=== PATIENT | male | born 1965 | race Caucasian/White ===

== ENCOUNTER 2020-08-15 17:48 | Emergency (ER) | payer BC, SELFPAY ==
--- NOTE | 2020-08-15 17:54 | ED.UPPEXIN ---
HPI - Extremity Injury (Upper) General Chief Complaint: Wound/Laceration Stated Complaint: injury to L arm Time Seen by Provider: 08/15/20 18:02 Source: patient and RN notes reviewed Mode of arrival: ambulatory Limitations: no limitations History of Present Illness HPI narrative: Patient states he got cut just prior to arrival on his left forearm after a fluorescent light broke. complaint: injury to: left and forearm Onset (ago): minute(s) (10) Other injuries: none Handedness: right Place: home Severity: mild Relieving factors: none Exacerbating factors: none Context: laceration Associated symptoms: denies other symptoms Treatments prior to arrival: bandage Related Data Home Medications Medication Instructions Recorded Confirmed atorvastatin 20 mg PO DAILY 08/15/20 08/15/20 Allergies Allergy/AdvReac Type Severity Reaction Status Date / Time Penicillins Allergy Anaphylaxis Verified 08/15/20 18:08 Review of Systems Review of Systems: All systems reviewed & are unremarkable except as noted in HPI and below PMFSH Past Medical History Medical History (Updated 08/15/20 @ 18:39 by Ankush Rowe MD) Hyperlipidemia Surgical History Surgical History (Updated 08/15/20 @ 18:33 by Ankush Rowe MD) No pertinent past surgical history Social History Social History (Updated 08/15/20 @ 18:33 by Ankush Rowe MD) Smoking packs per day: 1 Smoking cigarettes per day: 20.0 Smoking status: Current every day smoker Tobacco type: cigarettes Alcohol intake: never Substance use: never Exam Const: General: healthy appearing and no acute distress Nutritional Appearance: well nourished Orientation/consciousness: patient oriented x3 HENMT: Head: normal to inspection Ears: external ears normal Eyes: Conjunctivae: conjunctivae normal Pupils: Equal, round and reactive pupils present EOM: EOMs intact bilaterally Neck: Neck: normal visual inspection Resp: Effort & Inspection: normal respiratory effort Auscultation: clear to auscultation bilaterally Cardio: Rate: regular rate Rhythm: regular rhythm GI: GI Palp: Yes Soft to palpation Auscultation: normal bowel sounds Back/Spine/Pelvis: Cervical Spine: cervical ROM normal Thoracic/Lumbar Spine: thoraco-lumbar ROM normal Skin: Wounds: wounds noted laceration left forearm size (3.5 cm) Neuro: General: patient oriented x3, moves all extremities and no focal motor deficits Speech: normal speech Gait exam (Neuro): Normal gait present Extrem: General: normal to inspection and no clubbing, cyanosis or edema Psych: Appearance: grossly normal and well kempt Mental Status: mental status grossly normal Affect: normal affect Attitude: cooperative Thought content: Yes Normal thought content present Course Vital Signs Vital signs: Vital Signs Temperature 36.8 C 08/15/20 18:00 Pulse Rate 82 08/15/20 18:00 Respiratory Rate 16 08/15/20 18:00 Blood Pressure 142/78 H 08/15/20 18:00 Pulse Oximetry 97 08/15/20 18:00 Temperature 36.8 C 08/15/20 18:00 Pulse Rate 80 08/15/20 18:47 Respiratory Rate 15 08/15/20 18:47 Blood Pressure 142/78 H 08/15/20 18:00 Pulse Oximetry 100 08/15/20 18:47 Procedures Laceration Laceration 1: Date: 08/15/20 Time: 18:12 Site: upper extremity (forearm) Side (If applicable): left Description: flap Local Anesthetic: lidocaine 1% and with epi Pre-repair: wound explored and irrigated ====== Skin Level ====== Skin layer closed with: nylon Size (cm): 4-0 Number of sutures: 9 Technique: running ====== Subcutaneous Layer ====== Subcutaneous layer closed with: vicryl Size: 4-0 Number of sutures: 5 Technique: simple, interrupted ====== Muscle Layer ====== ====== Tendon Layer ====== Discharge Plan Discharge Clinical Impression: Laceration Patient Dispositi
[2020-08-15 18:00] VITALS: BP 142/78; PULSE 82; RESP 16; TEMP 36.8; O2SAT 97
[2020-08-15] MEDS: LIDO 1%/EPINEPHRINE 1:100,000 20 ML VIAL INFILTRATE (18:05)
[2020-08-15] MEDS: NEOMYCIN/POLYMYXIN/BACITRACIN OINTMENT PACKET 1 PACKET (18:31)
[2020-08-15] MEDS: TETANUS,DIPHTHERIA,AC PERTUSSIS ADULT 0.5 ML (ADACEL) (18:34)
[2020-08-15 18:47] VITALS: PULSE 80; RESP 15; O2SAT 100
== END 2020-08-15 18:48 | disposition home or self-care (01) ==
PROVIDERS: Emergency Provider Emergency Medicine; PCP Family Medicine
DX: S51.812A Laceration without foreign body of left forearm, initial encounter (principal); W25.XXXA Contact with sharp glass, initial encounter
CPT/HCPCS: 12002; 90471; 90715; 99282

== ENCOUNTER 2021-03-12 09:32 | Emergency (ER) | payer BC, SELFPAY ==
[2021-03-12 09:40] VITALS: BP 160/85; PULSE 80; RESP 17; TEMP 36.9; O2SAT 98
--- NOTE | 2021-03-12 09:47 | ED.ABDPAIN ---
HPI - Abdominal Pain General Chief Complaint: Abdominal Pain Stated Complaint: ABD PAIN Time Seen by Provider: 03/12/21 09:47 Source: patient Mode of arrival: ambulatory Limitations: no limitations History of Present Illness HPI narrative: 55-year-old man with a history of peripheral vascular disease status post stents, smoking, and hyperlipidemia comes in today complaining of an episode of abdominal pain that was severe approximately 1 week ago. He states that since then he has had a fullness in his right lower abdomen that feels like something is pulling in there . He has had no dysuria, nausea, vomiting, diarrhea, swelling in his groin or scrotum, dysuria, hematuria, or fever. He denies prior abdominal surgeries. MD elicited complaint: abdominal pain Onset (ago): week(s) (1) Pain Consistency: constant Location: RLQ Severity: mild Quality: fullness Radiation: none Migration to: no migration Exacerbating factors: nothing Relieving factors: nothing Associated symptoms: denies other symptoms Related Data Home Medications Medication Instructions Recorded Confirmed atorvastatin 20 mg PO DAILY 08/15/20 03/12/21 aspirin 81 mg PO DAILY 03/12/21 03/12/21 Allergies Allergy/AdvReac Type Severity Reaction Status Date / Time Penicillins Allergy Anaphylaxis Verified 08/15/20 18:08 Review of Systems Constitutional: Constitutional: Denies chills and Denies fever(s) ENT: Denies dysphagia, Denies nasal congestion and Denies sore throat Cardiovascular: Cardiovascular: Denies chest pain and Denies radiating jaw, neck or arm pain Respiratory: Respiratory: Denies cough and Denies dyspnea Gastrointestinal: Gastrointestinal: Reports as per HPI, Denies abdominal pain, Denies nausea and Denies vomiting Genitourinary: Genitourinary: Denies hematuria, Denies dysuria and Denies urinary frequency Musculoskeletal: Musculoskeletal: Denies back pain, Denies arthralgias and Denies joint swelling Integumentary/Breasts: Skin/Breast: Denies pruritus, Denies erythema and Denies rash Neurologic: Denies vertigo, Denies dizziness and Denies syncope Hematologic/Lymphatic: Hematologic/Lymphatic: Denies easy bleeding and Denies easy bruising Allergic/Immunologic: Allergic/Immunologic: Denies lip swelling and Denies throat swelling PMFSH Past Medical History Medical History (Updated 03/12/21 @ 11:04 by Moose Hirsch MD) Hyperlipidemia Peripheral vascular disease Surgical History Surgical History (Updated 03/12/21 @ 09:59 by Moose Hirsch MD) No pertinent past surgical history S/P arterial stent Social History Social History Smoking packs per day: 1 Smoking cigarettes per day: 20.0 Smoking status: Current every day smoker Tobacco type: cigarettes Alcohol intake: never Substance use: never Exam Const: General: healthy appearing, no acute distress and alert Orientation/consciousness: patient oriented x3 Limitations: no limitations HENMT: Head: normal to inspection General nose exam: Normal nares present Face and sinus: normal facial exam Mouth: Yes moist mucous membranes Throat: posterior oropharynx normal Eyes: Conjunctivae: conjunctivae normal Pupils: Equal, round and reactive pupils present EOM: EOMs intact bilaterally Resp: Effort & Inspection: normal respiratory effort and not labored Auscultation: clear to auscultation bilaterally, no rales, no rhonchi and no wheezes Cardio: Rate: regular rate Rhythm: regular rhythm Heart sounds: no murmurs GI: GI Palp: Yes Soft to palpation, No Tenderness to palpation present (GI), No Guarding due to palpation present (GI), No Rigid due to palpation, No Hernia present and No Palpable mass present : Male General Exam: Yes normal external exam Scrotum: scrotum normal Skin: General skin exam: normal color, no jaundice and no pallor Rashes: no rashes Neuro: General: patient oriented x3, moves
[2021-03-12 10:14] LABS: Basophils Absolute Auto 0.07 K/mm3 (0.00-0.10); Basophils Percent Auto 0.7 % (0.0-1.0); Eosinophils Absolute Auto 0.16 K/mm3 (0.02-0.50); Eosinophils Percent Auto 1.6 % (1.0-6.0); Hematocrit 48.5 % (40.0-54.0); Hemoglobin 16.6 g/dL (14.0-18.0); Immature Granulocyte Absolute 0.03 K/mm3 (0.00-0.00); Immature Granulocyte Percent A 0.3 % (0.0-0.0); Lymphocytes Absolute Auto 2.01 K/mm3 (1.10-4.50); Mean Corpuscular HGB Conc 34.2 g/dL (32.0-36.0); Mean Corpuscular Hemoglobin 31.9 pg (27.0-31.0); Mean Corpuscular Volume 93.1 fL (78.0-102.0); Mean Platelet Volume 9.4 fl (8.7-11.0); Monocytes Absolute Auto 0.85 K/mm3 (0.10-0.90); Monocytes Percent Auto 8.4 % (2.0-11.0); Platelet Count Result 194 K/mm3 (150-420); Red Blood Count 5.21 M/mm3 (4.70-6.10); Red Cell Distribution Width 13.2 % (11.6-14.4); White Blood Count 10.1 K/mm3 (4.8-10.8)
[2021-03-12 10:26] LABS: Alanine Aminotransferase 25 U/L (16-63); Alkaline Phosphatase 89 U/L (46-116); Anion Gap 4 mmol/L (8-16); Aspartate Amino Transferase 12 U/L (15-37); Bilirubin,Total 0.9 mg/dL (0.00-1.00); Blood Urea Nitrogen 8 mg/dL (7-18); Calcium 8.8 mg/dL (8.5-10.1); Carbon Dioxide 32 mmol/L (21-32); Chloride 101 mmol/L (98-108); Estimated Glomerular Filt Rate > 60; Glucose 102 mg/dL (70-99); Osmolality Calculated 282 mOsm/kg (285-295); Sodium 137 mmol/L (136-145); Total Protein 7.8 g/dL (6.4-8.2)
[2021-03-12 10:52] LABS: Add Urine Microscopic? YES; Appearance Urine Clear (Clear); Bilirubin Urine Negative (Negative); Blood Urine Negative (Negative); Color Urine Yellow (Yellow); Glucose Urine UA 1+ (Negative); Ketones Urine Negative (Negative); Leukocyte Esterase Ur Negative LEU/UL (Negative); Nitrate Urine Negative (Negative); Protein Urine Negative (Negative); pH Urine 6.5 (5.0-8.0)
[2021-03-12 10:56] LABS: RBC Urine 0-2 /hpf (0-2); Squamous Epithelial Cell Urine None seen /hpf (Few); WBC Urine 0-3 /hpf (0-3)
[2021-03-12 10:57] LABS: Bacteria Urine None seen /hpf; Mucus Urine Few /lpf
[2021-03-12 11:12] VITALS: RESP 17
== END 2021-03-12 11:13 | disposition home or self-care (01) ==
PROVIDERS: Emergency Provider Emergency Medicine; PCP Family Medicine
DX: R10.31 Right lower quadrant pain (principal)
CPT/HCPCS: 36415; 80053; 81001; 85025; 99282; 99283

== ENCOUNTER 2021-10-30 13:05 | Outpatient (CLI) | payer BC, SELFPAY ==
--- NOTE | ~2021-10-30 | XR_ITS ---
EXAMINATION: [id number]_[id number] EXAM DATE: 10/30/2021 13:37 INDICATION: Neck pain. Right side. TECHNIQUE: Cervical spine frontal, lateral, lateral swimmers, and open-mouth odontoid projections. C omparison is made to prior examination from 11/19/2013. FINDINGS: There is moderate disc disease from C4 through C7. The vertebral bodies are aligned in the AP dimension. The odontoid process is intact. The lateral masses of C1 line up with C2. Prevertebral soft tissue and pre-dens space are within normal limits. At least moderate uncovertebral joint arthr opathy C4-C7 as well causing neural foraminal stenosis. Mild to moderate amount of bilateral carotid bulb arteriosclerosis with unknown amount of stenosis; consider follow-up carotid ultrasound. Lung ap ices are clear. IMPRESSION: 1. Moderate lower cervical spondylosis. 2. Carotid arteriosclerosis. Consider ultrasound. Reviewed, dictated and finalized at location A. UMER RELATIONS SPECIALIST
== END 2021-10-30 13:06 | disposition home or self-care (01) ==
LOC: CHSIMG 13:08
PROVIDERS: PCP Family Medicine; Visit Provider Physician Assistant
DX: M54.2 Cervicalgia (principal)
CPT/HCPCS: 72040

== ENCOUNTER 2025-02-06 09:44 | Outpatient (CLI) | payer BC, SELFPAY ==
--- NOTE | ~2025-02-06 | CT_ITS ---
CT Scan of the Chest without Contrast: Clinical Indication: Lung cancer screening, nicotine dependence Technique: Contiguous sections were acquired throughout the chest without intravenous contrast. Dose reduction technique was used on this scan by utilizing automated exposure control and iterative recon struction technique. The dose-length product (DLP) was 86.61 mGy-cm. Findings: There is no evidence of any significant mediastinal, hilar or axillary lymphadenopathy. Extensive cor onary artery calcifications present. There is no evidence of pleural or pericardial effusion. 4 mm right middle lobe pulmonary nodule present (axial image 74). Images through the upper abdomen reveal no abnormalities. Impression: Lung RADS 2: Benign appearance. 12 month follow-up screening CT advised. Reviewed, dictated and finalized at location . Impression: Lung RADS 2: Benign appearance. 12 month follow-up screening CT advised.
== END 2025-02-06 09:45 | disposition home or self-care (01) ==
LOC: CHSIMG 09:45
PROVIDERS: PCP Family Medicine; Visit Provider Family Medicine
DX: Z12.2 Encounter for screening for malignant neoplasm of respiratory organs (principal); Z87.891 Personal history of nicotine dependence
CPT/HCPCS: 71271

== ENCOUNTER 2025-03-03 06:00 | Emergency (ER) | payer BC, SELFPAY ==
[2025-03-03] VITALS (10 sets, daily range): BP systolic 150–183; BP diastolic 70–78; PULSE 60–92; RESP 12–26; TEMP 36.1–36.7; O2SAT 94–100
--- NOTE | ~2025-03-03 | XR_ITS ---
Portable chest x-ray Comparison: 05/27/2015 Clinical History: Chest pain Findings: Lungs are clear, without focal consolidation or pleural effusion. Cardiomediastinal silho uette is stable. Bones and soft tissues are unremarkable. Impression: Normal chest. Reviewed, dictated and finalized at [facility]. Impression: Normal chest.
--- NOTE | 2025-03-03 06:02 | ECG_ITS ---
Test Date: 2025-03-03 06:08:20 Measurements Intervals [place] Rate: 69 P: 51 WY: 190 QRS: 71 QRSD: 100 T: 62 QT: 400 QTc: 430 Interpretive Statements SINUS RHYTHM WITH MARKED SINUS ARRHYTHMIA VOLTAGE CRITERIA FOR LVH BASELINE ARTIFACT- I, III BORDERLINE ECG No previous ECG available for comparison Electronically Signed On 03-03-2025 06:37:55 CDT by Jerry Hurtado D.O.
--- NOTE | 2025-03-03 06:03 | ED_ITS ---
HPI - General Adult General Chief complaint: Chest Pain <Amilcar Christianson DO - Last Filed: 03/03/25 06:25> Stated complaint: Left lateral side pain <Amilcar Christianson DO - Last Filed: 03/03/25 06:25> Time Seen by Provider: 03/03/25 06:02 <Amilcar Christianson DO - Last Filed: 03/03/25 06:25> History of Present Illness HPI narrative: Arie is a 59M with a PMH of HLD, PAD, tobacco abuse, COPD and CAD s/p stents that presented to the ED with a few days of left sided chest pain that is worse with taking a deep breath and coughing. He denies any dyspnea, sputum production or coughing more than usual. No lightheadedness, nausea or vomiting. He did not come in earlier as he was out of town. <Amilcar Christianson DO - Last Filed: 03/03/25 06:25> Related Data Home medications: Home Medications ?Medication ?Instructions ?Recorded ?Confirmed ?Last Taken ?Type atorvastatin 20 mg tablet 20 mg PO DAILY 08/15/20 03/12/21 Unknown History aspirin 81 mg tablet 81 mg PO DAILY 03/12/21 03/12/21 Unknown History <Amilcar Christianson DO - Last Filed: 03/03/25 06:25> Allergies/adverse reactions: Allergies Allergy/AdvReac Type Severity Reaction Status Date / Time Penicillins Allergy Anaphylaxis Verified 03/03/25 06:24 <Amilcar Christianson DO - Last Filed: 03/03/25 06:25> Review of Systems 2 Review of Systems: All systems reviewed & are unremarkable except as noted in HPI and below <DO Vanna Reeves Last Filed: 03/03/25 06:25> [facility] Past Medical History Medical History: Medical History Peripheral vascular disease Hyperlipidemia <Amilcar Christianson DO - Last Filed: 03/03/25 06:25> Surgical History Surgical History: Surgical History S/P arterial stent No pertinent past surgical history <Amilcar Christianson DO - Last Filed: 03/03/25 06:25> Social History Social History: Social History Smoking packs per day: 1 Smoking cigarettes per day: 20.0 Smoking status: Current every day smoker Tobacco type: cigarettes Alcohol intake: never Substance use: never <Amilcar Christianson DO - Last Filed: 03/03/25 06:25> Exam 2 Const: General: cooperative, healthy appearing, comfortable, no acute distress, well developed, alert, awake and Physically active <Amilcar Christianson DO - Last Filed: 03/03/25 06:25> Orientation/consciousness: oriented to person, oriented to place and oriented to time <Amilcar Christianson DO - Last Filed: 03/03/25 06:25> HENMT: Head: normal to inspection, normocephalic and atraumatic <Amilcar Christianson DO - Last Filed: 03/03/25 06:25> Ears: hearing grossly normal bilaterally and external ears normal <Amilcar Christianson DO - Last Filed: 03/03/25 06:25> Face/Nose/Sinus: Normal external nose present <Amilcar Christianson DO - Last Filed: 03/03/25 06:25> Eyes: General: appearance normal, both eyes and all related structures < Amilcar Christianson DO - Last Filed: 03/03/25 06:25> Periorbital: periorbital findings normal <Amilcar Christianson DO - Last Filed: 03/03/25 06:25> Sclera: sclerae normal <Amilcar Christianson DO - Last Filed: 03/03/25 06:25> Pupils: Equal, round and reactive pupils present <Amilcar Christianson DO - Last Filed: 03/03/25 06:25> Neck: Neck: normal visual inspection <Amilcar Christianson DO - Last Filed: 03/03/25 06:25> Chest: Chest palpation & inspection: normal inspection of the chest <Amilcar Christianson DO - Last Filed: 03/03/25 06:25> Resp: Effort & Inspection: normal respiratory effort, able to speak in complete sentences and no respiratory distress <Amilcar Christianson DO - Last Filed: 03/03/25 06:25> Other: diffuse wheezing with a prolonged expiratory phase <Amilcar Christianson DO - Last Filed: 03/03/25 06:25> Cardio: Jugular venous distension: no JVD <Amilcar Christianson DO - Last Filed: 03/03/25 06:25> Rate: regular rate <Amilcar Christianson DO - Last Filed: 03/03/25 06:25> Rhythm: regular rhythm <Amilcar Christianson DO - Last Filed: 03/03/25 06:25> GI: Inspection: normal to inspection <Amilcar Christianson DO - Last Filed: 03/03/25 06:25> GI Palp: Yes Soft to palpation <Amilcar Christianson DO - Last Filed: 03/03/25 06:25> Auscultation: normal bowel sounds <Amilcar Christianson DO - Last Filed: 03/03/25 06:25> Skin: General skin exam: normal color and no rashes or lesions noted <Amilcar Christianson DO - Last Filed: 03/03/25 06:25> Neuro: General: oriented to person, oriented to place and oriented to time <Amilcar Christianson DO - Last Filed: 03/03/25 06:25> Cranial nerves: Yes Equal, round and reactive pupils present <Amilcar Christianson DO - Last Filed: 03/03/25 06:25> Extrem: General: normal to inspection <Amilcar Christianson DO - Last Filed: 03/03/25 06:25> Course Course Emergency Course: Ordered labs, EKG, and CXR as well as duoneb. EKG shows NSR with a rate of 69, normal axis, possible LVH but no ST elevation/depression <Amilcar Christianson DO - Last Filed: 03/03/25 06:25> Vital Signs Vital signs: Vital Signs Temperature 97.0 F L 03/03/25 06:02 Pulse Rate 88 03/03/25 06:02 Respiratory Rate 18 03/03/25 06:02 Blood Pressure 183/75 H 03/03/25 06:02 Pulse Oximetry 100 03/03/25 06:02 Oxygen Delivery Room Air 03/03/25 06:02 Temperature 97.0 F L 03/03/25 06:02 Pulse Rate 64 03/03/25 06:42 Respiratory Rate 12 03/03/25 06:42 Blood Pressure 183/75 H 03/03/25 06:02 Pulse Oximetry 100 03/03/25 06:42 Oxygen Delivery Room Air 03/03/25 06:19 <Amilcar Christianson, DO - Last Filed: 03/03/25 06:25> Vital Signs Temperature 97.0 F L 03/03/25 06:02 Pulse Rate 88 03/03/25 06:02 Respiratory Rate 18 03/03/25 06:02 Blood Pressure 183/75 H 03/03/25 06:02 Pulse Oximetry 100 03/03/25 06:02 Oxygen Delivery Room Air 03/03/25 06:02 Temperature 97.0 F L 03/03/25 06:02 Pulse Rate 64 03/03/25 06:42 Respiratory Rate 12 03/03/25 06:42 Blood Pressure 183/75 H 03/03/25 06:02 Pulse Oximetry 100 03/03/25 06:42 Oxygen Delivery Room Air 03/03/25 06:19 <Adam Hope III, DO - Last Filed: 03/03/25 07:13> Medical Decision Making MDM Narrative Medical decision making narrative: assumed care from Dr Soto at 0700 awaiting cxr. cxr nad, trop and labs unremarkable. Pt had pain for 3 days but risk factors for CAD. work up with ekg and labs and cxr reassuring. home on nsaids <Adam Alvaro Hope III, DO - Last Filed: 03/03/25 07:13> Vital Signs Vital Signs: Vital Signs Temperature 97.0 F L 03/03/25 06:02 Pulse Rate 88 03/03/25 06:02 Respiratory Rate 18 03/03/25 06:02 Blood Pressure 183/75 H 03/03/25 06:02 Pulse Oximetry 100 03/03/25 06:02 Oxygen Delivery Room Air 03/03/25 06:02 Temperature 97.0 F L 03/03/25 06:02 Pulse Rate 64 03/03/25 06:42 Respiratory Rate 12 03/03/25 06:42 Blood Pressure 183/75 H 03/03/25 06:02 Pulse Oximetry 100 03/03/25 06:42 Oxygen Delivery Room Air 03/03/25 06:19 <Amilcar Christianson, DO - Last Filed: 03/03/25 06:25> Vital Signs Temperature 97.0 F L 03/03/25 06:02 Pulse Rate 88 03/03/25 06:02 Respiratory Rate 18 03/03/25 06:02 Blood Pressure 183/75 H 03/03/25 06:02 Pulse Oximetry 100 03/03/25 06:02 Oxygen Delivery Room Air 03/03/25 06:02 Temperature 97.0 F L 03/03/25 06:02 Pulse Rate 64 03/03/25 06:42 Respiratory Rate 12 03/03/25 06:42 Blood Pressure 183/75 H 03/03/25 06:02 Pulse Oximetry 100 03/03/25 06:42 Oxygen Delivery Room Air 03/03/25 06:19 <Aadm John Hope III, DO - Last Filed: 03/03/25 07:13> Lab Data Result diagrams: 03/03/25 06:17 03/03/25 06:17 <Amilcar Christianson, DO - Last Filed: 03/03/25 06:25> Labs: Lab Results 03/03/25 Range/Units 06:17 WBC 6.7 (4.8-10.8) K/mm3 RBC 4.99 (4.70-6.10) M/mm3 Hgb 15.9 (14.0-18.0) g/dL Hct 46.2 (40.0-54.0) % MCV 92.6 (78.0-102.0) fL MCH 31.9 H (27.0-31.0) pg MCHC 34.4 (32-36) g/dL RDW 13.2 (11.6-14.4) % Plt Count 183 (150-420) K/mm3 MPV 9.4 (8.7-11.0) fl Immature Gran % (Auto) 0.3 H (0.0-0.0) % Neut % (Auto) 65.8 (50.0-70.0) % Lymph % (Auto) 22.7 (18.0-42.0) % Winkler % (Auto) 7.0 (2.0-11.0) % Eos % (Auto) 3.3 (1.0-6.0) % Baso % (Auto) 0.9 (0.0-1.0) % Lymph # (Auto) 1.52 (1.10-4.50) K/mm3 Winkler # (Auto) 0.47 (0.10-0.90) K/mm3 Eos # (Auto) 0.22 (0.02-0.50) K/mm3 Baso # (Auto) 0.06 (0.00-0.10) K/mm3 Abs Immat Gran (auto) 0.02 H (0.00-0.00) K/mm3 Absolute Neuts (auto) 4.40 (1.70-7.20) K/mm3 Absolute Nucleated RBC 0.00 (0.00-0.00) K/mm3 Nucleated RBC % 0.0 (0-0.0) % PT 10.7 (9.50-12.1) Seconds INR 1.0 Sodium 140 (136-145) mmol/L Potassium 3.4 L (3.5-5.1) mmol/L Chloride 100 (98-108) mmol/L Carbon Dioxide 29 (21-32) mmol/L Anion Gap 11 (4-12) mmol/L BUN 9 (7-18) mg/dL Creatinine 1.14 (0.70-1.30) mg/dL Estim Creat Clear Calc 62 ml/min Estimated GFR > 60 (59 - ) Glucose 238 H (70-99) mg/dL Calculated Osmolality 296 H (285-295) mOsm/kg Calcium 8.9 (8.5-10.1) mg/dL Magnesium 1.9 (1.8-2.4) mg/dL Total Bilirubin 0.6 (0.00-1.00) mg/dL AST 23 (15-37) U/L ALT 37 (16-63) U/L Alkaline Phosphatase 87 (46-116) U/L Troponin I 4.8 (0.00-60.4) ng/L NT-Pro-B Natriuret Pep 27 (0-125) pg/mL Total Protein 7.3 (6.4-8.2) g/dL Albumin 3.8 (3.4-5.0) g/dL <Amilcar Christianson, - Last Filed: 03/03/25 06:25> Lab Results 03/03/25 Range/Units 06:17 WBC 6.7 (4.8-10.8) K/mm3 RBC 4.99 (4.70-6.10) M/mm3 Hgb 15.9 (14.0-18.0) g/dL Hct 46.2 (40.0-54.0) % MCV 92.6 (78.0-102.0) fL MCH 31.9 H (27.0-31.0) pg MCHC 34.4 (32-36) g/dL RDW 13.2 (11.6-14.4) % Plt Count 183 (150-420) K/mm3 MPV 9.4 (8.7-11.0) fl Immature Gran % (Auto) 0.3 H (0.0-0.0) % Neut % (Auto) 65.8 (50.0-70.0) % Lymph % (Auto) 22.7 (18.0-42.0) % Winkler % (Auto) 7.0 (2.0-11.0) % Eos % (Auto) 3.3 (1.0-6.0) % Baso % (Auto) 0.9 (0.0-1.0) % Lymph # (Auto) 1.52 (1.10-4.50) K/mm3 Winkler # (Auto) 0.47 (0.10-0.90) K/mm3 Eos # (Auto) 0.22 (0.02-0.50) K/mm3 Baso # (Auto) 0.06 (0.00-0.10) K/mm3 Abs Immat Gran (auto) 0.02 H (0.00-0.00) K/mm3 Absolute Neuts (auto) 4.40 (1.70-7.20) K/mm3 Absolute Nucleated RBC 0.00 (0.00-0.00) K/mm3 Nucleated RBC % 0.0 (0-0.0) % PT 10.7 (9.50-12.1) Seconds INR 1.0 Sodium 140 (136-145) mmol/L Potassium 3.4 L (3.5-5.1) mmol/L Chloride 100 (98-108) mmol/L Carbon Dioxide 29 (21-32) mmol/L Anion Gap 11 (4-12) mmol/L BUN 9 (7-18) mg/dL Creatinine 1.14 (0.70-1.30) mg/dL Estim Creat Clear Calc 62 ml/min Estimated GFR > 60 (59 - ) Glucose 238 H (70-99) mg/dL Calculated Osmolality 296 H (285-295) mOsm/kg Calcium 8.9 (8.5-10.1) mg/dL Magnesium 1.9 (1.8-2.4) mg/dL Total Bilirubin 0.6 (0.00-1.00) mg/dL AST 23 (15-37) U/L ALT 37 (16-63) U/L Alkaline Phosphatase 87 (46-116) U/L Troponin I 4.8 (0.00-60.4) ng/L NT-Pro-B Natriuret Pep 27 (0-125) pg/mL Total Protein 7.3 (6.4-8.2) g/dL Albumin 3.8 (3.4-5.0) g/dL <Adam Hope III, DO - Last Filed: 03/03/25 07:13> Discharge Plan Discharge Clinical Impression: Atypical chest pain, Chest wall muscle strain <Amilcar Christianson DO - Last Filed: 03/03/25 06:25> Patient Disposition: Home <Amilcar Christianson DO - Last Filed: 03/03/25 06:25> Condition: Stable <Amilcar Christianson DO - Last Filed: 03/03/25 06:25> Instructions: Antibiotic Form, Chest Wall Pain (ED) <Amilcar Christianson DO - Last Filed: 03/03/25 06:25> Patient Language: German <Amilcar Christianson DO - Last Filed: 03/03/25 06:25> Prescriptions: New naproxen [Naprosyn] 500 mg tablet 500 mg PO BID Qty: 20 0RF No Action aspirin 81 mg Tablet 81 mg PO DAILY atorvastatin 20 mg tablet 20 mg PO DAILY <Amilcar Christianson, DO - Last Filed: 03/03/25 06:25> Follow-up/Referrals: Ana,MD Lv [Primary Care Provider] - <Amilcar Christianson, DO - Last Filed: 03/03/25 06:25> Quality HEART score for chest pain patients History: slightly suspicious <Adam Alvaro Hope III, DO - Last Filed: 03/03/25 07:13> ECG: normal <Adam Alvaro Hope III, DO - Last Filed: 03/03/25 07:13> Age: > 45 and < 65 years <Adam Alvaro Hope III, DO - Last Filed: 03/03/25 07:13> Risk factors: > or = to 3 risk factors of atherosclerotic disease <Adam Alvaro Hope III, DO - Last Filed: 03/03/25 07:13> Troponin: < or = to 1x normal limit <Adam Alvaro Hope III, DO - Last Filed: 03/03/25 07:13> Heart score: 3 <Adam Alvaro Hope III, DO - Last Filed: 03/03/25 07:13>
--- OUTSIDE RECORDS SUMMARY | 2025-03-03 06:03 | XMS_ITS | Encounter Summary ---
Author Organization [facility] Address [facility] [place] [address] Care Team Providers Care Map Mounter Name Role Phone Lv Perez MD Primary Care Provider Brent Holliday MD Unavailable Brent Holliday MD Unavailable Encounter Details Date Type Department Care Team (Late st Contact Info) Description 03/08/2016 Abstract [facility] [address] [place] [phone] Brent Holliday MD [phone] 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
--- OUTSIDE RECORDS SUMMARY | 2025-03-03 06:03 | XMS_ITS | Clinical Summary ---
Author Organization [facility] Address [facility] [place] [address] Care Team Providers Care Insurance Verifier Name Role Phone vL Perez MD Primary Care Provider Brent Holliday MD Unavailable Allergies Active Allergy Reactions Criticality Noted Date Comments Penicillins Hives High 07/05/2016 Medications aspirin 81 MG chewable tablet Chew 1 tablet by mouth daily. 01/05/20 16 Active atorvastatin 20 MG tabletIndications:Pure hypercholesterolemia Take 1 tablet (20 mg total) by mouth daily. 90 tablet 3 07/04/20 16 Active hydroCHLOROthiazide (MICROZIDE) 12.5 MG capsule take 1 capsule by mouth every day in the morning 90 capsule 2 09/02/20 24 Active metoprolol tartrate (LOPRESSOR) 25 MG tablet Take 0.5 tablets (12.5 mg total) by mouth 2 (two) times daily. 90 tablet 3 12/10/19 25 Active Active Problems Problem Noted Date Diagnosed Date S/P insertion of iliac artery stent 05/12/2021 Smoker 04/01/2021 Hyperlipidemia, unspecified hyperlipidemia type 04/01/2021 Primary hypertension 06/30/2016 Atherosclerosis of [place] ar josé miguel of left lower extremity with intermittent claudication 06/30/2016 Obstructive chronic bronchit is without exacerbation ([facility]) 06/30/2016 Personal history of tobacco use, presenting hazards to health 06/30/2016 PAD (peripheral artery disease) 06/30/2016 Encounters Date Type Department Care Team Description 12/10/2024 9:15 AM HOME THERAPY CLINICIAN Office Visit [facility] [place] [phone] Brent Holliday MD Follow Up 12/10/2024 Telephone [facility] [address] [place] [address] Brent Holliday MD Follow Up Call (Confirm pharmacy and get copies of DL and insurance.) 12/10/2024 Travel 12/09/2024 Telephone [facility] [address] [place] [address] Brent Holliday MD Appointment Reminder 12/06/2024 7:43 AM HOME THERAPY CLINICIAN - 12/06/2024 11:59 PM HOME THERAPY CLINICIAN Hospital Encounter [facility] [address] [place] [address] Brent Holliday MD Discharge Disposition: Home or Self Care (Routine Discharge) 12/06/2024 Travel from Last 3 Months Family History Medical History Relation Comments CABG Father Coronary artery disease Father Heart Attack Father Relation Status Comments Brother 1 Alive Brother 2 Alive Brother 3 Alive Father Alive Maternal Grandfather Maternal Grandmother Mother (Age 61) Paternal Grandfather Paternal Grandmother Sister Alive Social History Tobacco Use Types Packs/Day Years Used Date Smoking Tobacco: Smoker, Current Status Unknown Cigarettes 1 20 Smokeless Tobacco: Never Tobacco Cessation:Ready to Q uit: Not Asked; Counseling Given: Not Answered Alcohol Use Standard Drinks/Week Comments No 0 (1 standard drink = 0.6 oz pur e alcohol) rarely Sex and Gender Information Value Date Recorded Sex Assigned at Male 12/06/2024 7:41 AM HOME THERAPY CLINICIAN Legal Sex Male 7:24 PM CDT Gender Identity Not on file Sexual Orientation Not on file 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 Not on file Not on file Not on file Not on file Not on file Not on file Last Filed Vital Signs Vital Sign Reading Time Taken Comments Blood Pressure 152/80 12/10/2024 9:21 AM HOME THERAPY CLINICIAN Manual recheck Pulse 78 12/10/2024 9:20 AM HOME THERAPY CLINICIAN Temperature 36 C (96.8 F) 07/05/2016 4:24 PM CDT Respiratory Rate 16 12/10/2024 9:20 AM HOME THERAPY CLINICIAN Oxygen Saturation 98% 12/10/2024 9:2 0 AM HOME THERAPY CLINICIAN Inhaled Oxygen Concentration - - Weight 80.8 kg (178 lb 3.2 oz) 12/10/2024 9:20 AM HOME THERAPY CLINICIAN Height 172.7 cm (5' 8 ) 12/10/2024 9:20 AM HOME THERAPY CLINICIAN Body Mass Index 27.1 12/10/2024 9:20 AM HOME THERAPY CLINICIAN Plan of Treatment Health Maintenance Due Date Last Done Comments ASCVD Statin 1967 Colorectal Cancer Screening Colonoscopy (10 Years) 1967 Annual Physical 1970 Pneumococcal Vaccine: Pediatrics (0 to 5 Years) and At-Risk Patients (6 to 49 Years) (1 of 2 - PCV) 1973 Hepatitis C 1985 Hepatitis B Vaccines (1 of 3 - 19+ 3-dose series) 1986 ASCVD LDL 02/09/2017 02/10/2016 Lung Cancer Screening 2017 Zoster Vaccines (1 of 2) 2017 COVID-19 Vaccine (3 - 2023-2 5 season) 2024 07/24/2021, 07/02/2021 DTaP, Tdap and Td Vaccines ( 2 - Td or Tdap) 08/15/2030 08/15/2020 Meningococcal B Vaccine Aged Out No l onger eligible based on patient's age to complete this topic Meningococcal Vaccine Aged Out No felipe laverne eligible based on patient's age to complete this topic RSV Immunizations Under 20 Months Aged Out No longer eligible b ased on patient's age to complete this topic Procedures Procedure Name Priority Date/Time Associated Diagnosis Comments [facility] Routine 12/06/2024 8:20 AM HOME THERAPY CLINICIAN PAD (peripheral artery disease) LIPID PANEL Routine 02/10/2016 1:05 PM CDT from Last 3 Months or Most Recently Relevant to Health Maintenance Results * [facility] (12/06/2024 8:20 AM HOME THERAPY CLINICIAN) Anatomical Region Laterality Modality Extremity Ultrasound 12/06/2024 8:02 AM HOME THERAPY CLINICIAN Narrative 12/06/2024 5:26 PM HOME THERAPY CLINICIAN Outreach Arterial Doppler KYLE Vascular Report Pat.Name: Arie Moran Pat.ID: [id number] [facility] Refer.MD: Mitra, [facility] Exam Time: 8:02:00 AM Study Type:OUTREACH ART DOPPLER - KYLE Height: 68 in Age: 7 1965,59Y Sex: M Sonogrphr: augie Bowman rvt Pat. Stat.:Outpatient Reason for Study:PAD (peripheral artery disease) Procedures: Study performed at [place], [place] and interpreted by [facility]. ++++++++++++++++++++++++++++++++++++ SUMMARY: ++++++++++++++++++++++++++++++++++++ KYLE Rt: The resting KYLE is 0.95. KYLE Rt: This suggests borderline peripheral arterial disease. KYLE Rt: Pulse volume tracings suggest mild peripheral arterial occlusive disease. KYLE Rt: The toe pressure is 117 mmHg. KYLE Rt: The TBI is 0.76. KYLE Rt: TBI is within normal range. KYLE Lt: The resting KYLE is 0.93. KYLE Lt: This suggests borderline peripheral arterial disease. KYLE Lt: Pulse volume tracings suggest mild peripheral arterial occlusive disease. KYLE Lt: The toe pressure is 92 mmHg. KYLE Lt: The TBI is 0.60. KYLE Lt: TBI is within abnormal range. ++++++++++++++++++++++++++++++++++++ FINDINGS: ++++++++++++++++++++++++++++++++++++ KYLE Rt: The resting KYLE is 0.95. This suggests borderline peripheral arterial disease. Pulse volume tracings suggest mild peripheral arterial occlusive disease. The toe pressure is 117 mmHg. The TBI is 0.76. TBI is within normal range. KYLE Lt: The resting KYLE is 0.93. This suggests borderline peripheral arterial disease. Pulse volume tracings suggest mild peripheral arterial occlusive disease. The toe pressure is 92 mmHg. The TBI is 0.60. TBI is within abnormal range. ++++++++++++++++++++++++++++++++++++ MEASUREMENTS: ++++++++++++++++++++++++++++++++++++ PRESSURES Right Brachial Brach P 154 mmHg Right Ankle DP AnkleDP P 147 mmHg Right Ankle PT AnklePT P 146 mmHg Right Great Toe GreatToe P 117 mmHg Right KYLE PT KYLE PT 0.948 Right KYLE DP KYLE DP 0.955 Right TBI TBI 0.76 Left Brachial Brach P 146 mmHg Left Ankle DP AnkleDP P 143 mmHg Left Ankle PT AnklePT P 139 mmHg Left Great Toe GreatToe P 92 mmHg Left KYLE PT KYLE PT 0.903 Left KYLE DP KYLE DP 0.929 Left TBI TBI 0.597 <Electronic Signature> 12/06/2024 05:26 PM Brent Holliday M.D. Procedure Note Brent Holliday MD - 12/06/2024 Outreach Arterial Doppler KYLE Vascular Report Pat.Name: Arie Moran Pat.ID: [id number] .Date: 12/06/2024 Refer.MD: Mitra, [facility] Exam Time: 8:02:00 AM Study Type:OUTREACH ART DOPPLER - KYLE Height: 68 in Age: 7 1965,59Y Sex: M Sonogrphr: augie Bowman t Pat. Stat.:Outpatient Reason for Study:PAD (peripheral artery disease) Procedures: Study performed at [facility], [place], [place] and interpreted by [facility]. ++++++++++++++++++++++++++++++++++++ SUMMARY: ++++++++++++++++++++++++++++++++++++ KYLE Rt: The resting KYLE is 0.95. KYLE Rt: This suggests borderline peripheral arterial disease. KYLE Rt: Pulse volume tracings suggest mild peripheral arterial occlusive disease. KYLE Rt: The toe pressure is 117 mmHg. KYLE Rt: The TBI is 0.76. KYLE Rt: TBI is within normal range. KYLE Lt: The resting KYLE is 0.93. KYLE Lt: This suggests borderline peripheral arterial disease. KYLE Lt: Pulse volume tracings suggest mild peripheral arterial occlusive disease. KYLE Lt: The toe pressure is 92 mmHg. KYLE Lt: The TBI is 0.60. KYLE Lt: TBI is within abnormal range. ++++++++++++++++++++++++++++++++++++ FINDINGS: ++++++++++++++++++++++++++++++++++++ KYLE Rt: The resting KYLE is 0.95. This suggests borderline peripheral arterial disease. Pulse volume tracings suggest mild peripheral arterial occlusive disease. The toe pressure is 117 mmHg. The TBI is 0.76. TBI is within normal range. KYLE Lt: The resting KYLE is 0.93. This suggests borderline peripheral arterial disease. Pulse volume tracings suggest mild peripheral arterial occlusive disease. The toe pressure is 92 mmHg. The TBI is 0.60. TBI is within abnormal range. ++++++++++++++++++++++++++++++++++++ MEASUREMENTS: ++++++++++++++++++++++++++++++++++++ PRESSURES Right Brachial Brach P 154 mmHg Right Ankle DP AnkleDP P 147 mmHg Right Ankle PT AnklePT P 146 mmHg Right Great Toe GreatToe P 117 mmHg Right KYLE PT KYLE PT 0.948 Right KYLE DP KYLE DP 0.955 Right TBI TBI 0.76 Left Brachial Brach P 146 mmHg Left Ankle DP AnkleDP P 143 mmHg Left Ankle PT AnklePT P 139 mmHg Left Great Toe GreatToe P 92 mmHg Left KYLE PT KYLE PT 0.903 Left KYLE DP KYLE DP 0.929 Left TBI TBI 0.597 <Electronic Signature> 12/06/2024 05:26 PM Brent Holliday M.D. Brent Holliday MD [facility] Final Result * LIPID PANEL (02/10/2016 1:05 PM CDT) [facility] TRIGLYCERIDES 196 0 - 150 mg/dl MEDINFORMATIX TO EPIC CONVERSION CHOLESTEROL 223 0 - 200 mg/dl MEDINFORMATIX TO EPIC CONVERSION HDL 30 40 - 59 mg/dl MEDINFORMATIX TO EPIC CONVERSION LDL CONVERSION 153.8 0 - 100 mg/dl MEDINFORMATIX TO EPIC CONVERSION CHOL/HDL RATIO 7.4 <4.0 (Calc) MEDINFORMATIX TO EPIC CONVERSION 02/10/2016 1:05 PM CDT 02/10/2016 1:05 PM CDT us Generic Conversion Md [facility] Final R esult MEDINFORMATIX TO EPIC CONVERSION from Last 3 Months or Most Recently Relevant to Health Maintenance Insurance Care Teams Insurance Verifier Relationship Specialty Start Date End Date Lv Perez MD [address] [place] [phone] PCP - General FAMILY PRACTICE 06/16/16 Brent Holliday MD [address] [place] [phone] Vascular/Ranch Rider INTERNAL MEDICINE 04/11/22
[2025-03-03 06:23] LABS: Basophils Absolute Auto 0.06 K/mm3 (0.00-0.10); Basophils Percent Auto 0.9 % (0.0-1.0); Eosinophils Absolute Auto 0.22 K/mm3 (0.02-0.50); Eosinophils Percent Auto 3.3 % (1.0-6.0); Hematocrit 46.2 % (40.0-54.0); Hemoglobin 15.9 g/dL (14.0-18.0); Immature Granulocyte Absolute 0.02 K/mm3 (0.00-0.00); Immature Granulocyte Percent A 0.3 % (0.0-0.0); Lymphocytes Absolute Auto 1.52 K/mm3 (1.10-4.50); Lymphocytes Percent Auto 22.7 % (18.0-42.0); Mean Corpuscular HGB Conc 34.4 g/dL (32-36); Mean Corpuscular Hemoglobin 31.9 pg (27.0-31.0); Mean Corpuscular Volume 92.6 fL (78.0-102.0); Mean Platelet Volume 9.4 fl (8.7-11.0); Monocytes Absolute Auto 0.47 K/mm3 (0.10-0.90); Neutrophils Percent Auto 65.8 % (50.0-70.0); Platelet Count Result 183 K/mm3 (150-420); Red Blood Count 4.99 M/mm3 (4.70-6.10); Red Cell Distribution Width 13.2 % (11.6-14.4); White Blood Count 6.7 K/mm3 (4.8-10.8)
[2025-03-03] MEDS: IPRATROPIUM 0.5 MG/ALBUTEROL SULFATE 2.5 MG AMPUL.NEB 3 ML INHALATION (06:34)
[2025-03-03 06:35] LABS: Prothrombin Time 10.7 Seconds (9.50-12.1)
[2025-03-03 06:51] LABS: Alanine Aminotransferase 37 U/L (16-63); Albumin Level 3.8 g/dL (3.4-5.0); Alkaline Phosphatase 87 U/L (46-116); Anion Gap 11 mmol/L (4-12); Aspartate Amino Transferase 23 U/L (15-37); Bilirubin,Total 0.6 mg/dL (0.00-1.00); Blood Urea Nitrogen 9 mg/dL (7-18); Calcium 8.9 mg/dL (8.5-10.1); Carbon Dioxide 29 mmol/L (21-32); Chloride 100 mmol/L (98-108); Estimated CRCL calculation 62 ml/min; Estimated Glomerular Filt Rate > 60; Glucose 238 mg/dL (70-99); Magnesium 1.9 mg/dL (1.8-2.4); NT Pro B Type Natriuretic Pept 27 pg/mL (0-125); Osmolality Calculated 296 mOsm/kg (285-295); Potassium 3.4 mmol/L (3.5-5.1); Sodium 140 mmol/L (136-145); Total Protein 7.3 g/dL (6.4-8.2); Troponin I 4.8 ng/L (0.00-60.4)
--- NOTE | 2025-03-03 07:06 | PC.NURSE ---
patient resting on stretcher in ED 2, call light within reach. patient report given to HOA Montes for continuation of care on day shift. Dr. Hope at bedside for patient update and plan of care.
[2025-03-03] MEDS: KETOROLAC 30 MG/ML VIAL (*BKC) IM (07:17)
== END 2025-03-03 07:35 | disposition home or self-care (01) ==
PROVIDERS: Family Medicine; Emergency Provider Emergency Medicine; PCP Family Medicine
DX: S29.011A Strain of muscle and tendon of front wall of thorax, initial encounter (principal); R07.89 Other chest pain; E78.5 Hyperlipidemia, unspecified; J44.9 Chronic obstructive pulmonary disease, unspecified; I25.10 Atherosclerotic heart disease of native coronary artery without angina pectoris; F17.210 Nicotine dependence, cigarettes, uncomplicated; X58.XXXA Exposure to other specified factors, initial encounter
CPT/HCPCS: 36415; 71045; 80053; 83735; 83880; 84484; 85025; 85610; 93005; 94640; 96372; 99284; J1885